=== PATIENT | male | born 1970 | race Hispanic/Latino ===

== ENCOUNTER 2018-10-17 14:08 | Outpatient (CLI) | payer OTHER ==
--- NOTE | 2018-10-17 14:16 | RAD ---
EXAM: Chest 2 views: HISTORY: Dyspnea COMPARISON: 10/06/2010 FINDINGS: There is a normal-sized cardiomediastinal silhouette. There is no evidence of consolidation, mass, or pleural effusion. The bones are unremarkable. IMPRESSION: No evidence of acute cardiopulmonary disease
== END 2018-10-17 14:09 | disposition home or self-care (01) ==
LOC: RAD 14:08
PROVIDERS: ATTEND Internal Medicine Pulmonary Disease
DX: R06.00 Dyspnea, unspecified (principal)
CPT/HCPCS: 71046

== ENCOUNTER 2024-06-02 23:47 | Inpatient (IN) | payer OTHER, SELFPAY ==
[2024-06-03 00:31] LABS: #Basophils Less than 0.03 10x3/uL (0.0-0.2); #Eosinophils Less than 0.03 10x3/uL (0.0-0.7); %Basophils 0.3 % (0.0-1.0); %Eosinophils 0.1 % (0.0-10.0); %Lymphocytes 9.8 % (21.0-51.0); %Monocytes 10.6 % (0.0-10.0); %Neutrophils 78.8 % (42.0-75.0); Hematocrit 47.3 % (42.0-52.0); Hemoglobin 15.7 g/dL (14.0-18.0); Mean Corpuscular HGB CONC 33.2 g/dL (32.0-36.0); Mean Corpuscular Hemoglobin 27.4 pg (27.0-31.0); Mean Corpuscular Volume 82.4 fL (78.0-98.0); Mean Platelet Volume 10.2 fL (7.4-10.4); Platelet Count 198 10x3/uL (130-400); RBC Distribution Width 12.5 % (11.5-14.5); Red Blood Cell (RBC) Count 5.74 mill/uL (4.70-6.10)
[2024-06-03] MEDS ORDERED: Nitroglycerin 2% Ointment 1 INCH/1 GM Packet ONE (00:31)
[2024-06-03] MEDS ORDERED: Furosemide 40 MG (4 mL) VIAL ONE ×3 (00:31→14:51)
[2024-06-03 00:51] LABS: Troponin I 0.085 ng/mL (< 0.028)
[2024-06-03] MEDS ORDERED: Aspirin Chewable 81 MG TAB ONE (00:56)
[2024-06-03 01:02] LABS: ALT (SGPT) 16 U/L (8-55); AST (SGOT) 19 U/L (5-34); Albumin 2.1 g/dL (3.5-5.0); Alkaline Phosphatase 113 U/L (40-110); Anion Gap 13 mmol/L (10-20); BUN (Urea Nitrogen) 12 mg/dL (8.4-25.7); Bilirubin, Total 0.3 mg/dL (0.2-1.2); Calc. Creatinine Clearance 0 mL/min (70-130); Carbon Dioxide 27 mmol/L (22-29); Chloride 97 mmol/L (98-107); Estimated GFR 48; Globulin 4.4 g/dL (2.4-3.5); Glucose 293 mg/dL (70-105); Potassium 3.7 mmol/L (3.5-5.1); Protein, Total 6.5 g/dL (6.0-8.3); Sodium 133 mmol/L (136-145)
[2024-06-03] MEDS ORDERED: Labetalol HCl 100 MG/20 ML VIAL ONE ×2 (01:03→20:51)
[2024-06-03] MEDS ORDERED: Acetaminophen 325 MG TAB PO PRN (02:00)
[2024-06-03] MEDS ORDERED: Ondansetron ODT 4 MG TAB SL PRN (02:00)
[2024-06-03] MEDS ORDERED: Ondansetron PF 4 MG/2 ML Vial IVP PRN (02:00)
[2024-06-03] MEDS ORDERED: hydrALAZINE 20 MG/ML VIAL SLOW IVP PRN (02:12)
[2024-06-03] MEDS ORDERED: Glucagon 1 MG/ML KIT IM PRN (02:16)
[2024-06-03] MEDS ORDERED: Dextrose 5% in Water 1,000 ML IV PRN (02:16)
[2024-06-03] MEDS ORDERED: Dextrose 50% Abboject 50 ML SYRINGE SLOW IVP PRN (02:16)
[2024-06-03 02:24] LABS: Troponin I 0.084 ng/mL (< 0.028)
[2024-06-03 06:16] LABS: #Basophils Less than 0.03 10x3/uL (0.0-0.2); #Eosinophils Less than 0.03 10x3/uL (0.0-0.7); %Basophils 0.3 % (0.0-1.0); %Eosinophils 0.1 % (0.0-10.0); %Lymphocytes 11.2 % (21.0-51.0); %Monocytes 10.8 % (0.0-10.0); Hematocrit 49.4 % (42.0-52.0); Hemoglobin 15.7 g/dL (14.0-18.0); Mean Corpuscular HGB CONC 31.8 g/dL (32.0-36.0); Mean Corpuscular Hemoglobin 26.7 pg (27.0-31.0); Mean Corpuscular Volume 84.2 fL (78.0-98.0); Mean Platelet Volume 9.9 fL (7.4-10.4); Platelet Count 204 10x3/uL (130-400); RBC Distribution Width 12.6 % (11.5-14.5); Red Blood Cell (RBC) Count 5.87 mill/uL (4.70-6.10)
[2024-06-03] MEDS: Furosemide 40 MG (4 mL) VIAL SLOW IVP SCH (06:30)
[2024-06-03 06:34] LABS: Magnesium 1.6 mg/dL (1.6-2.6)
[2024-06-03 06:45] LABS: Troponin I 0.085 ng/mL (< 0.028)
[2024-06-03 06:46] LABS: Troponin I 0.086 ng/mL (< 0.028)
[2024-06-03] MEDS ORDERED: Electrolyte Replacement Protocol 1 EACH FS SCH (10:00)
[2024-06-03 10:02] LABS: Actual Bicarbonate (HCO3a) 35.5 mEq/L (22-28); Analyzer IN Cardio ER; Base Excess (BEa) 6.7 mEq/L (-2.0 to +3.0); Calcium, Ionized (arterial) 1.32 mmol/L (1.12-1.30); Carboxyhemoglobin (COHb) 1.3 gm% (0.0-3.0); Hematocrit-ABG 49 % (42.0-52.0); Hemoglobin (Hb) 16.7 g/dL (14.0-18.0); Potassium - ABG Lab 3.27 mmol/L (3.70-5.30); pH, Arterial 7.339 (7.35-7.45)
[2024-06-03 10:05] LABS: CO2 Tension 67.5 mmHg (35.0-45.0); O2 Tension (PaO2), arterial 48.5 mmHg (80.0-100.0); Puncture Site Right Radial artery
[2024-06-03] MEDS ORDERED: Dexmedetomidine In 0.9 % NaCl 100 ML IVPB SCH (10:15)
[2024-06-03] MEDS ORDERED: LORazepam 2 MG/ML SYR.(CARPUJECT) ONE (10:33)
[2024-06-03] MEDS: Lorazepam 2 MG/ML VIAL SLOW IVP PRN (10:38)
[2024-06-03] MEDS ORDERED: Enoxaparin 40 MG (0.4 mL) SYRINGE ONE (11:24)
[2024-06-03] MEDS: Magnesium Sulfate In Water 4 GM in Premix 1 BAG IVPB SCH (11:35)
[2024-06-03] MEDS: Enoxaparin 40 MG (0.4 mL) SYRINGE SC SCH (11:35)
[2024-06-03] MEDS: Carvedilol 6.25 MG TAB PO SCH (18:47)
[2024-06-03 20:46] LABS: Actual Bicarbonate (HCO3v) 35.1 mEq/L (22-28); Analyzer IN Cardio ER; Base Excess 8.2 mEq/L (-2.0 to +3.0); Calcium, Ionized (venous) 1.25 mmol/L (1.16-1.32); Chloride (VBG) 95 mmol/L (98-106); Hematocrit-VBG 53 % (42.0-52.0); Hemoglobin (Hb) 17.9 g/dL (13.1-17.2); Potassium (VBG) 3.77 mmol/L (3.70-5.30); Sodium 139 mmol/L (133-146)
[2024-06-03] MEDS: Labetalol HCl 100 MG/20 ML VIAL SLOW IVP PRN (21:03)
[2024-06-03] MEDS ORDERED: guaiFENesin ER 600 MG TAB ONE (21:05)
[2024-06-03] MEDS: guaiFENesin/DM ER PO SCH (21:09)
[2024-06-04 06:25] VITALS: BMI 37.4
[2024-06-04] MEDS: Benzonatate 100 MG CAP PO PRN (08:42)
[2024-06-04 08:48] LABS: #Basophils 0.04 10x3/uL (0.0-0.2); #Eosinophils Less than 0.03 10x3/uL (0.0-0.7); %Basophils 0.5 % (0.0-1.0); %Eosinophils 0.1 % (0.0-10.0); %Lymphocytes 10.3 % (21.0-51.0); %Monocytes 10.4 % (0.0-10.0); %Neutrophils 78.2 % (42.0-75.0); Hematocrit 52.6 % (42.0-52.0); Hemoglobin 16.6 g/dL (14.0-18.0); Mean Corpuscular HGB CONC 31.6 g/dL (32.0-36.0); Mean Corpuscular Hemoglobin 26.6 pg (27.0-31.0); Mean Corpuscular Volume 84.2 fL (78.0-98.0); Mean Platelet Volume 10.1 fL (7.4-10.4); Platelet Count 300 10x3/uL (130-400); RBC Distribution Width 12.6 % (11.5-14.5); Red Blood Cell (RBC) Count 6.25 mill/uL (4.70-6.10)
[2024-06-04 09:07] LABS: Anion Gap 15 mmol/L (10-20); BUN (Urea Nitrogen) 14 mg/dL (8.4-25.7); Calc. Creatinine Clearance 93 mL/min (70-130); Carbon Dioxide 33 mmol/L (22-29); Chloride 96 mmol/L (98-107); Estimated GFR 63; Glucose 172 mg/dL (70-105); Magnesium 1.9 mg/dL (1.6-2.6); Potassium 3.7 mmol/L (3.5-5.1); Sodium 140 mmol/L (136-145)
[2024-06-04] MEDS ORDERED: Ipratropium/Albuterol 3 ML NEB NEB PRN (11:11)
[2024-06-04] MEDS: Magnesium 2 GM/50 ML(in water) 2 GM in Premix 1 BAG IVPB SCH (11:21)
[2024-06-04] MEDS: Insulin Lispro 100 UNIT/ML 10 ML VIAL SC PRN ×2 (11:21→22:56)
[2024-06-04 14:56] LABS: Actual Bicarbonate (HCO3a) 34.9 mEq/L (22-28); Base Excess (BEa) 8.3 mEq/L (-2.0 to +3.0); CO2 Tension 55.4 mmHg (35.0-45.0); Calcium, Ionized (arterial) 1.28 mmol/L (1.12-1.30); Hematocrit-ABG 46 % (42.0-52.0); Hemoglobin (Hb) 15.7 g/dL (14.0-18.0); O2 Tension (PaO2), arterial 72.1 mmHg (80.0-100.0); pH, Arterial 7.417 (7.35-7.45)
[2024-06-04 14:57] LABS: Puncture Site Right Radial artery
[2024-06-05 05:15] LABS: #Basophils 0.04 10x3/uL (0.0-0.2); %Basophils 0.4 % (0.0-1.0); %Eosinophils 0.5 % (0.0-10.0); %Lymphocytes 9.1 % (21.0-51.0); %Monocytes 7.6 % (0.0-10.0); %Neutrophils 80.1 % (42.0-75.0); Hematocrit 48.2 % (42.0-52.0); Hemoglobin 15.3 g/dL (14.0-18.0); Mean Corpuscular HGB CONC 31.7 g/dL (32.0-36.0); Mean Corpuscular Hemoglobin 26.8 pg (27.0-31.0); Mean Corpuscular Volume 84.4 fL (78.0-98.0); Mean Platelet Volume 9.8 fL (7.4-10.4); Platelet Count 304 10x3/uL (130-400); RBC Distribution Width 12.6 % (11.5-14.5); Red Blood Cell (RBC) Count 5.71 mill/uL (4.70-6.10)
[2024-06-05 05:45] LABS: Anion Gap 11 mmol/L (10-20); BUN (Urea Nitrogen) 18 mg/dL (8.4-25.7); Calc. Creatinine Clearance 94 mL/min (70-130); Calcium 9.8 mg/dL (7.8-10.44); Carbon Dioxide 28 mmol/L (22-29); Chloride 92 mmol/L (98-107); Estimated GFR 62; Glucose 343 mg/dL (70-105); Magnesium 1.8 mg/dL (1.6-2.6); Potassium 3.2 mmol/L (3.5-5.1); Sodium 128 mmol/L (136-145)
[2024-06-05] MEDS ORDERED: Potassium Chloride 20 MEQ TAB PO SCH (06:45)
[2024-06-05] MEDS ORDERED: Carvedilol 6.25 MG TAB PO SCH (07:26)
[2024-06-05] MEDS: Magnesium 2 GM/50 ML(in water) 2 GM in Premix 1 BAG IVPB SCH (08:33)
[2024-06-05] MEDS: Potassium Chloride 20 MEQ TAB PO SCH (08:34)
[2024-06-05] MEDS: Carvedilol 25 MG TAB PO SCH (08:34)
[2024-06-05] MEDS: Insulin Glargine 30 UNITS/0.3 ML VIAL SC SCH (08:35)
[2024-06-05 12:35] VITALS: BMI 38.3
[2024-06-06] MEDS: hydrALAZINE 20 MG/ML VIAL SLOW IVP PRN (01:23)
[2024-06-06 04:55] LABS: #Basophils 0.03 10x3/uL (0.0-0.2); %Basophils 0.3 % (0.0-1.0); %Eosinophils 0.3 % (0.0-10.0); %Lymphocytes 9.5 % (21.0-51.0); %Monocytes 8.4 % (0.0-10.0); %Neutrophils 80.3 % (42.0-75.0); Hematocrit 46.8 % (42.0-52.0); Mean Corpuscular HGB CONC 32.1 g/dL (32.0-36.0); Mean Corpuscular Hemoglobin 26.2 pg (27.0-31.0); Mean Corpuscular Volume 81.7 fL (78.0-98.0); Mean Platelet Volume 9.8 fL (7.4-10.4); Platelet Count 306 10x3/uL (130-400); RBC Distribution Width 12.4 % (11.5-14.5); Red Blood Cell (RBC) Count 5.73 mill/uL (4.70-6.10)
[2024-06-06 05:08] LABS: Anion Gap 8 mmol/L (10-20); BUN (Urea Nitrogen) 18 mg/dL (8.4-25.7); Calc. Creatinine Clearance 119 mL/min (70-130); Calcium 10.2 mg/dL (7.8-10.44); Carbon Dioxide 33 mmol/L (22-29); Chloride 93 mmol/L (98-107); Estimated GFR 82; Glucose 141 mg/dL (70-105); Magnesium 1.9 mg/dL (1.6-2.6); Potassium 3.1 mmol/L (3.5-5.1); Sodium 131 mmol/L (136-145)
[2024-06-06 09:25] VITALS: TEMP 97.5
[2024-06-06] MEDS: Lisinopril 10 MG TAB PO SCH (09:25)
[2024-06-06] MEDS: Potassium Chloride 20 MEQ TAB PO SCH (09:25)
[2024-06-06] MEDS: Magnesium 2 GM/50 ML(in water) 2 GM in Premix 1 BAG IVPB SCH (09:26)
[2024-06-06] MEDS ORDERED: Lisinopril 5 MG TAB PO SCH (10:30)
[2024-06-06] MEDS: Lisinopril 20 MG TAB PO SCH (11:49)
[2024-06-06 14:34] LABS: Anion Gap 13 mmol/L (10-20); BUN (Urea Nitrogen) 19 mg/dL (8.4-25.7); Calc. Creatinine Clearance 90 mL/min (70-130); Carbon Dioxide 28 mmol/L (22-29); Chloride 93 mmol/L (98-107); Estimated GFR 60; Glucose 252 mg/dL (70-105); Potassium 3.7 mmol/L (3.5-5.1); Sodium 130 mmol/L (136-145)
[2024-06-06] MEDS: Furosemide 40 MG TAB PO SCH (15:52)
[2024-06-06 16:33] VITALS: BP 168/87
[2024-06-06] MEDS ORDERED: metFORMIN 500 MG TAB PO SCH (17:00)
[2024-06-06] MEDS ORDERED: Lisinopril 10 MG TAB PO SCH ×2 (21:00)
[2024-06-06] MEDS ORDERED: Lisinopril 20 MG TAB PO SCH (21:00)
== END 2024-06-06 18:20 | disposition home or self-care (01) | DRG 291 ==
LOC: ERS 23:47 → ERHOLD 06-03 01:44 → 2NO 06-03 23:06
PROVIDERS: ADMIT Internal Medicine; ATTEND Family Medicine
DX: I11.0 Hypertensive heart disease with heart failure (principal); G93.41 Metabolic encephalopathy; I50.33 Acute on chronic diastolic (congestive) heart failure; J18.9 Pneumonia, unspecified organism; J96.02 Acute respiratory failure with hypercapnia; J96.01 Acute respiratory failure with hypoxia; N17.9 Acute kidney failure, unspecified; T46.5X6A Underdosing of other antihypertensive drugs, initial encounter; E11.9 Type 2 diabetes mellitus without complications; G47.33 Obstructive sleep apnea (adult) (pediatric); Z91.148 Patient's other noncompliance with medication regimen for other reason; Z87.891 Personal history of nicotine dependence; Z99.89 Dependence on other enabling machines and devices; Z79.899 Other long term (current) drug therapy
CPT/HCPCS: 36415; 36416; 36600; 71045; 80048; 80053; 82805; 83036; 83735; 83880; 84484; 85025; 87070; 87077; 87205; 93005; 93306; 93798; 94660; J0360; J1650; J1815; J1940; J2060; J3475